=== PATIENT | male | born 1950 | race Caucasian/White ===

== ENCOUNTER → 2016-11-04 | Outpatient (CLI) | payer BC | LOC: BMCIMAGING 14:34 | PROVIDERS: ATTEND Podiatrist Foot & Ankle Surgery | DX: M79.671 Pain in right foot (principal) ==

== ENCOUNTER → 2017-04-09 | Outpatient (CLI) | payer BC | LOC: FIMAGING 16:36 | PROVIDERS: ATTEND Internal Medicine | DX: M79.602 Pain in left arm (principal) ==

== ENCOUNTER → 2017-06-03 | Outpatient (CLI) | payer OTHER, BC | LOC: BMCIMAGING 08:40 | PROVIDERS: ATTEND Internal Medicine | DX: R16.0 Hepatomegaly, not elsewhere classified (principal); K76.0 Fatty (change of) liver, not elsewhere classified ==